=== PATIENT | male | born 1995 | race Caucasian/White ===

== ENCOUNTER 2016-10-04 11:56 | Emergency (ER) | payer MEDICAID ==
[2016-10-04 11:57] VITALS: BMI 21.9
[2016-10-04 12:54] VITALS: BP 114/64; PULSE 76; TEMP 98.7
== END 2016-10-04 14:19 | disposition left against medical advice (07) ==
LOC: EDMC 11:56
DX: R11.2 Nausea with vomiting, unspecified (principal); R19.7 Diarrhea, unspecified; R50.9 Fever, unspecified; Z53.21 Procedure and treatment not carried out due to patient leaving prior to being seen by health care provider